=== PATIENT | male | born 1970 | race Caucasian/White ===

== ENCOUNTER 2017-09-10 09:49 | Emergency (ER) | payer OTHER ==
[~2017-09-10] VITALS: Ht 182.9 cm; Wt 103.5 kg
[~2017-09-10 09:49] MED LIST: METO25 PO; TRAM50 PO
[2017-09-10 09:58] VITALS: BP 178/100; PULSE 93; RESP 19; TEMP 98.1; O2SAT 99
[2017-09-10] MEDS ORDERED: MORPHINE SULFATE 4 MG/ML INJ IV PUSH ONE (10:00)
[2017-09-10] MEDS ORDERED: SILVER SULFADIAZINE 1% CR 400 GM JAR TOPICAL ONE (10:00)
[2017-09-10 10:05] VITALS: BP 178/100; PULSE 90; RESP 19; TEMP 98.1; O2SAT 98
[2017-09-10] MEDS ORDERED: METO1TAB42 PO (10:07)
[2017-09-10] MEDS ORDERED: OMEP40CA2 (10:07)
[2017-09-10] MEDS ORDERED: TETANUS/DIPHTHERIA TOXOID ADULT 0.5 ML VIAL IM ONE (10:15)
[2017-09-10 10:16] LABS: AUTOMATED NEUTROPHIL # 3.8 TH/MM3 (1.8-7.7); BASOPHIL % 0.4 % (0.0-2.0); EOSINOPHIL # 0.1 TH/MM3 (0-0.4); EOSINOPHIL % 1.4 % (0.0-4.0); HEMATOCRIT 39.6 % (39.0-51.0); HEMOGLOBIN 13.8 GM/DL (13.0-17.0); LYMPH % 38.2 % (9.0-44.0); LYMPHOCYTE # 2.8 TH/MM3 (1.0-4.8); MEAN CELL VOLUME 85.7 FL (80.0-100.0); MEAN CORPUSCULAR HEMOGLOBIN 29.8 PG (27.0-34.0); MEAN CORPUSCULAR HGB CONC 34.8 % (32.0-36.0); MEAN PLATELET VOLUME 6.9 FL (7.0-11.0); MONO % 8.1 % (0.0-8.0); MONOCYTE # 0.6 TH/MM3 (0-0.9); NEUT % 51.9 % (16.0-70.0); PLATELET COUNT 320 TH/MM3 (150-450); RED BLOOD COUNT 4.63 MIL/MM3 (4.50-5.90); RED CELL DISTRIBUTION WIDTH 12.7 % (11.6-17.2); WHITE BLOOD COUNT 7.2 TH/MM3 (4.0-11.0)
[2017-09-10 10:23] LABS: PROTHROMBIN TIME - PATIENT 10.1 SEC (9.8-11.6)
[2017-09-10 10:52] LABS: ALBUMIN 4.2 GM/DL (3.4-5.0); AST (GOT) 36 U/L (15-37); BICARBONATE 27.2 MEQ/L (21.0-32.0); BLOOD UREA NITROGEN 14 MG/DL (7-18); CALCIUM 8.6 MG/DL (8.5-10.1); CHLORIDE 106 MEQ/L (98-107); CREATININE 1.05 MG/DL (0.60-1.30); GLOMERULAR FILTRATION RATE 76 ML/MIN (>89); GLUCOSE,RANDOM 112 MG/DL (74-106); SODIUM (NA) 139 MEQ/L (136-145)
[2017-09-10 10:53] LABS: ALT (GPT) 49 U/L (12-78)
[2017-09-10 10:55] LABS: ALKALINE PHOSPHATASE 78 U/L (45-117); TOTAL BILIRUBIN ADULT 0.4 MG/DL (0.2-1.0); TOTAL PROTEIN 7.6 GM/DL (6.4-8.2)
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
[2017-09-10] MEDS ORDERED: HYDROmorphone HCL PF 2 MG/ML VIAL IV PUSH ONE (11:45)
[2017-09-10] MEDS ORDERED: HYDROmorphone HCL PF 1 MG/ML VIAL IV PUSH ONE (11:45)
[2017-09-10 11:47] VITALS: BP 171/97
== END 2017-09-10 11:46 | disposition short-term general hospital (02) ==
LOC: NEPE 09:49
DX: T23.201A Burn of second degree of right hand, unspecified site, initial encounter (principal); T22.211A Burn of second degree of right forearm, initial encounter; T22.232A Burn of second degree of left upper arm, initial encounter; T20.10XA Burn of first degree of head, face, and neck, unspecified site, initial encounter; X15.0XXA Contact with hot stove (kitchen), initial encounter; Y99.0 Civilian activity done for income or pay; I10 Essential (primary) hypertension; Z79.899 Other long term (current) drug therapy; Z23 Encounter for immunization
CPT/HCPCS: 16025; 80053; 85025; 85610; 85730; 90471; 90714; 96374; 96375; 99285; J1170; J2270